=== PATIENT | female | born 2000 | race African-American/Black ===

== ENCOUNTER 2025-07-20 10:08 | Emergency (ER) | payer OTHER, SELFPAY ==
--- NOTE | 2025-07-20 10:10 | ED.GENADULT ---
HPI - General Adult General Chief complaint: Upper Respiratory Infection Stated complaint: SINUS CONGESTION Time Seen by Provider: 07/20/25 10:10 Source: patient Mode of arrival: ambulatory Limitations: no limitations History of Present Illness HPI narrative: Patient is a 25-year-old female presenting with complaint of URI symptoms. Patient reports postnasal drip, rhinorrhea, congestion, sinus pressure x3 weeks. States symptoms have been constant but became worse over the last couple of days. Denies any known exposure to COVID a, flu, strep, pneumonia. Treatments initiated prior to arrival include various OTC medication without improvement. no additional complaints. Related Data Home Medications ?Medication ?Instructions ?Recorded ?Confirmed ?Last Taken ?Type ferrous sulfate 325 mg (65 mg mg 07/20/25 Unknown History iron) tablet Allergies Allergy/AdvReac Type Severity Reaction Status Date / Time No Known Allergies Allergy Verified 07/20/25 10:32 Review of Systems Review of Systems: CONSTITUTIONAL: Denies body aches, fever, chills, or sweats. EYES: Denies visual changes, redness, or discharge. ENT: Reports rhinorrhea, congestion, postnasal drip, sinus pressure. Denies sore throat or otalgia. CARDIOVASCULAR: Denies chest pain, palpitations, or edema. RESPIRATORY: Denies cough or dyspnea. GASTROINTESTINAL: Denies abdominal pain, nausea, vomiting, or diarrhea. GENITOURINARY: Denies dysuria or hematuria. SKIN: Denies rash, itching, or wounds. MUSCULOSKELETAL: Denies back pain, joint pain, or myalgia. NEUROLOGIC: Denies headache, numbness, tingling, or weakness. PSYCH: Denies depression or anxiety. All systems reviewed & are unremarkable except as noted in HPI and below Exam Narrative: GENERAL: Well-appearing, well-nourished, and in no acute distress. HEAD: Normocephalic, atraumatic. EYES: EOMI. No redness or drainage. Conjunctivae normal. ENT: Mucous membranes pink and moist. Nares clear. No rhinorrhea. TMs normal bilaterally. Throat normal. Uvula midline. +carley. maxillary sinus tenderness without overlying erythema or edema. NECK: Normal AROM. Supple. No lymphadenopathy. CHEST: No respiratory distress. Clear to auscultation. HEART: Regular rate and rhythm. No murmur appreciated. Normal peripheral pulses. EXTREMITIES: Normal range of motion. SKIN: Warm, dry, no rash. Capillary refill normal. Normal skin turgor. NEURO: No focal deficits. Alert and oriented x3. Gait steady. PSYCH: Normal affect. No signs of depression or anxiety. Course Course Level of Care: Express Care Visit Vital Signs Vital signs: Vital Signs Oxygen Delivery Room Air 07/20/25 10:15 Temperature 97.4 F L 07/20/25 10:17 Pulse Rate 91 07/20/25 10:17 Respiratory Rate 16 07/20/25 10:17 Blood Pressure 107/78 07/20/25 10:17 Pulse Oximetry 100 07/20/25 10:17 Oxygen Delivery Room Air 07/20/25 10:15 Medical Decision Making Vital Signs Vital Signs: Vital Signs Oxygen Delivery Room Air 07/20/25 10:15 Temperature 97.4 F L 07/20/25 10:17 Pulse Rate 91 07/20/25 10:17 Respiratory Rate 16 07/20/25 10:17 Blood Pressure 107/78 07/20/25 10:17 Pulse Oximetry 100 07/20/25 10:17 Oxygen Delivery Room Air 07/20/25 10:15 Discharge Plan Discharge Clinical Impression: Sinusitis Qualifiers: Sinusitis location: maxillary Chronicity: acute Recurrence: non-recurrent Qualified Code(s): J01.00 - Acute maxillary sinusitis, unspecified Patient Disposition: Home Condition: Stable Instructions: Antibiotic Form, Sinusitis (ED) Additional Instructions: Go straight to ER should your symptoms become worse or should any new symptoms develop Patient Language: Turkish Prescriptions: New prednisone 20 mg tablet 60 mg PO DAILY 5 Days Qty: 15 0RF amoxicillin-pot clavulanate 875-125 mg tablet 1 tablet PO Q12H Qty: 20 0RF amoxicillin-pot clavulanate 875-125 mg tablet 1 tablet PO Q12H Qty: 20 0RF prednisone 20 mg tablet 60 mg PO DAILY Qty: 15 0RF No Action ferrous sulfate 325 mg (65 mg iron) tablet Follow-up/Referrals: Stacey,MD Paula [Primary Care Provider, Unknown] - 07/21/25 Time of Disposition: 10:21
[2025-07-20 10:17] VITALS: BP 107/78; PULSE 91; RESP 16; TEMP 36.3; O2SAT 100
== END 2025-07-20 10:26 | disposition home or self-care (01) ==
PROVIDERS: Emergency Provider Registered Nurse; PCP Internal Medicine
DX: J01.00 Acute maxillary sinusitis, unspecified (principal)
CPT/HCPCS: 99203; G0463